=== PATIENT | male | born 1945 | race Caucasian/White ===

== ENCOUNTER 2016-08-20 13:15 | Outpatient (RCR) | payer MEDICARE, BC ==
[~2016-08-20 13:15] MED LIST: BACTRIM DS 8001 TAB PO; FLOMAX 0.40.4 MG/CAP PO; LIPITOR 10MG10 MG PO; TYLENOL W/COD1 UDTAB PO; VOLTAREN 75 DR75 MG PO; XALATAN EYE DROPS OD; ZOFRAN ODT4 MG PO
== END 2016-08-21 10:02 | disposition home or self-care (01) ==
LOC: WSPT 13:15
DX: M76.62 Achilles tendinitis, left leg (principal)
CPT/HCPCS: G0283-GP; G8978-GP; G8979-GP; G8980-GP